=== PATIENT | female | born 1995 | race Caucasian/White ===

== ENCOUNTER → 2020-09-07 18:07 | Outpatient (BNVA) | payer MEDICAID, SELFPAY | PROVIDERS: Family Provider Family Medicine; Visit Provider Nurse Practitioner | DX: Z20.828 Contact with and (suspected) exposure to other viral communicable diseases (principal) | CPT/HCPCS: 87635 ==

== ENCOUNTER 2021-02-19 15:30 | Outpatient (CLI) | payer BC, MEDICAID, SELFPAY ==
--- NOTE | 2021-02-19 16:08 | US_ITS ---
WS: [id number] ULTRASOUND EARLY TECHNIQUE: Transabdominal sonography of the pelvis was performed. Followed by transvaginal sonography to better evaluate the uterus and ovaries. CLINICAL INFORMATION: DATING US LMP: 12/15/2020 Beta hCG: Unknown. COMPARISON: None. FINDINGS: UTERUS AND GESTATIONAL SAC Intrauterine gestations: Single live intrauterine with pole. Yolk sac is present. Cervix is closed measuring 4 .2 CCM. [place]-rump rump length is 3.5 cm. Estimated gestational age: 10w3d Estimated delivery September 14, 2021. Yolk sac: 0.5 cm. [place] rump length (CRL): 3.5 cm. heart motion: 180 BPM. Subchorionic hemorrhage: Present OVARIES Right ovary: Normal. Left ovary: Normal. FREE FLUID None. US/US OB <= 14 weeks fetus [id number] IMPRESSION: 1. Single live intrauterine with pole. 2. Small amount of subchorionic hemorrhage measuring 1.2 cc. Recommend short i nterval follow-up. 3. Estimated gestational age; 10 weeks 3 days. Estimated delivery September 14, 2021. 4. Cervix is closed measuring 4.2 CM. 5. No significant free fluid in the cul-de-sac.
== END 2021-02-19 15:31 | disposition home or self-care (01) ==
LOC: US 15:33
PROVIDERS: PCP Family Medicine; Visit Provider Family Medicine
DX: Z34.80 Encounter for supervision of other normal pregnancy, unspecified trimester (principal)
CPT/HCPCS: 76801

== ENCOUNTER 2021-05-01 14:48 | Outpatient (CLI) | payer BC, MEDICAID, SELFPAY ==
--- NOTE | 2021-05-01 15:00 | US_ITS ---
WS: [id number] ULTRASOUND OB COMPLETE TECHNIQUE: Complete ultrasound. CLINICAL INFORMATION: ANATOMY COMPARISON: February 19, 2021 FINDINGS: Cervix measures 4.1 cm Single interuterine gestation is identified with cephalic presentation. Placenta is posterior. Placenta grade 0. Normal amniotic fluid volume. cardiac activity: 157 BPM. AGA: 20w5d GREY by ultrasound: 09/13/2021 Estimated weight: 362 g., %. BDP: 4.9 cm = 20w5d HC: 18.8 cm = 21w1d AC: 15.2 cm = 20w3d FEMUR LENGTH: 3.4 cm = 20w4d Anatomic survey: profile not seen due to position. Anatomic survey is otherwise normal. Normal stomach. Kidneys and bladder are normal. Normal 3 vessel cord. Normal 3 vessel cord insertion. Normal 4 chamber heart. Normal spine. Intracranial contents are normal. Normal posterior fossa and cisterna magna. US/US OB >= 14 weeks fetus [id number] IMPRESSION: 1. Single intrauterine with visualized cardiac activity. AGA 20w5d w ith GREY 09/13/2021. 2. Placenta is anterior. No evidence of abruption or previa. 3. profile not seen due to position. 4. anatomic survey is normal. 5. Normal amniotic fluid volume.
== END 2021-05-01 14:49 | disposition home or self-care (01) ==
LOC: RAD 14:51
PROVIDERS: PCP Family Medicine; Visit Provider Family Medicine
DX: Z36.89 Encounter for other specified antenatal screening (principal); Z3A.20 20 weeks gestation of pregnancy
CPT/HCPCS: 76805

== ENCOUNTER 2021-07-17 09:38 | Outpatient (CLI) | payer BC, MEDICAID, SELFPAY ==
[2021-07-17 09:38] VITALS: BMI 28.5
[2021-07-17 09:54] VITALS: BP 121/62; PULSE 113
[2021-07-17 09:59] VITALS: RESP 18; TEMP 36.3
--- NOTE | 2021-07-17 10:08 | XR_ITS ---
WS: [id number] XR chest 1V portable [id number] REASON FOR EXAM: SHORTNESS OF BREATH FINDINGS: The heart and mediastinum are within normal limits. Calcified granulomatous disease in both hemithoraces. No active pulmonary parenchymal or pleural disease is identified. No significant abnormality of the bony thorax. XR/XR chest 1V portable [id number] IMPRESSION: No acute chest abnormality.
[2021-07-17 10:24] VITALS: BP 123/72; PULSE 114
[2021-07-17 10:54] VITALS: BP 113/72; PULSE 101
[2021-07-17 10:59] LABS: Basophils % 0.1 %; Eosinophils % 0.3 %; Hematocrit 34.1 % (37.0-47.0); Hemoglobin 11.6 g/dL (11.5-15.3); Lymphocytes # 0.9 10^3/uL (0.8-4.8); Lymphocytes % 11.3 %; Mean Corpuscular Hemoglobin 30.9 pg (28.0-34.0); Mean Corpuscular Volume 90.7 fl (81-99); Mean Platelet Volume 9.7 fL (7.4-10.4); Monocytes # 0.6 10^3/uL (0.2-0.9); Monocytes % 7.5 %; Neutrophils # 6.19 10^3/uL (1.8-7.7); Neutrophils % 79.1 %; Nucleated Red Blood Cells % 0 %; Platelet Count 165 10^3/cmm (130-400); Red Blood Count 3.76 10^6/uL (4.1-5.3); Red Cell Distribution Width 12.2 % (12.1-15.1); White Blood Count 7.8 10^3/uL (4.0-10.0)
[2021-07-17 11:02] LABS: Bilirubin Urine 1+ (Negative); Blood Urine Neg (Negative); Glucose Urine UA Norm (Normal); Ketones Urine Negative (Negative); Leukocyte Esterase Urine 2+ (Negative); Nitrate Urine Negative (Negative); Protein Urine Neg (Negative); Specific Gravity, Urine 1.005 (1.005-1.030); Urine Appearance SL Hazy (CLEAR); Urine Color Yellow (Yellow); Urobilinogen Urine 4 mg/dL (Negative); pH Urine 7 (5-7)
[2021-07-17 11:03] LABS: Add Urine Microscopic? YES
[2021-07-17 11:09] LABS: Amphetamines Screen Urine Positive (Negative); Barbiturates Screen Urine Negative (Negative); Benzodiazepines Screen Urine Negative (Negative); Cocaine Screen Urine Negative (Negative); Opiate Screen Urine Negative (Negative); PCP Screen Urine Negative (Negative); THC Screen Urine Negative (Negative)
[2021-07-17 11:15] LABS: D Dimer 1.37 ug/mIFEU (0-0.59)
[2021-07-17 11:15] LABS: Add Urine Culture? No; Bacteria Urine 1+ /hpf; Mucus Urine 1+ /hpf; RBC Urine RARE /hpf (0-2)
[2021-07-17 11:26] LABS: Alanine Aminotransferase 18 U/L (0-33); Albumin Level 3.3 g/dL (3.5-5.2); Alkaline Phosphatase 215 IU/L (35-105); Blood Urea Nitrogen 7 mg/dL (6-20); Calcium 8.2 mg/dL (8.5-10.5); Carbon Dioxide 19 mmol/L (22-29); Globulin 2.6 g/dL (1.3-4.6); Glomerular Filtration Rate 192.9 mL/min (90-130); Glucose 82 mg/dL (65-115); Total Bilirubin 0.4 mg/dL (0.15-1.2); Total Protein 5.9 g/dL (6.6-8.7); Uric Acid 3.5 mg/dL (2.4-5.7)
[2021-07-17 11:36] LABS: Aspartate Amino Transferase 24 U/L (0-32)
[2021-07-17 11:38] LABS: UPRO/UCREAT Ratio 0.09 mg/mg CR; Urine Creatinine 171 mg/dL (28-217); Urine Protein Random 16 mg/dL
[2021-07-17 11:44] LABS: Chloride 101 mmol/L (98-107); Osmolality Calculated 273 mOsm/kg (285-295); Sodium 133 mmol/L (136-145)
--- NOTE | 2021-07-17 11:50 | CT_ITS ---
WS: [id number] CT CHEST ANGIOGRAPHY WITH REFORMATS HISTORY: Tachycardia, dyspnea TECHNIQUE: Contiguous axial images are obtained through the chest during arterial injection of intrav enous contrast. Images are reconstructed to evaluate the pulmonary arteries. MIP imaging also reviewe d. All CT scans at [facility] use at least one of these dose optimization techniques: automat ed exposure control; mA and/or kV adjustment per patient size (includes targeted exams where dose is matched to clinical indication); or iterative reconstruction. CONTRAST: Visipaque 320; 65 mL IV. DLP: 525.65 mGy.cm COMPARISON: None available. Limited opacification of the pulmonary arteries. Timing of the bolus and imaging is suboptimal. Heter ogeneous enhancement of the pulmonary artery. No large emboli evident. Pulmonary artery size is rachid l. No RIGHT heart strain. Normal aorta. Lungs are clear. No adenopathy. Upper abdominal structures are normal. CT/CT angio chest PE protcl [id number] IMPRESSION: 1. Suboptimal opacification of the pulmonary arteries. No large filling defect s are evident. Small emboli cannot be excluded. 2. No RIGHT heart strain. 3. Normal size pulmonary artery. 4. No pneumonia.
[2021-07-17] MEDS: iodixanol 320 mg/mL 100mL Btl IV (12:31)
--- NOTE | 2021-07-17 12:31 | P.MISC_ITS ---
Miscellaneous Note Note: The patient presented secondary to tachycardia with dyspnea in the office yesterday. She was advised to present to labor and delivery triage immediately. She did not do so and did not present until this morning. The patient continues to have shortness of breath. Her tachycardia was in the 140s i n the office and is down in the 1 15-1 20 range now. She continues to have shortness of breath. We have done labs to look for an underlying cause. Her D- dimer is elevated. We will get a Covid swab to see if this is the underlying cause. If it is negative, we will plan for a CT angio to rule out a blood clot. I discussed this with the patient and she is in agreement with the plan of care. It is possible that the patient's shortness of breath is related to her drug use. A blood culture has been done. White blood cell count is not elevated sufficiently to make me think that she has sepsis secondary to this, but the blood culture will be followed. Further work-up will be done pending her results. All questions were answered.
[2021-07-17 12:49] VITALS: BP 90/50; PULSE 116
[2021-07-17 13:02] LABS: SARS Covid-2 Antigen Negative (Negative)
--- NOTE | 2021-07-17 13:26 | PC.NURSE ---
TALKED WITH PATIENT ABOUT POSITIVE DRUG SCREEN AND SHE DENIED TAKING ANYTHING. DID TELL HER THAT WE WOULD SCREEN HER AGAIN PRIOR TO BABY BEING BORN AND IF SHE IS POSITIVE WE WOULD HAVE TO REPORT HER TO DFS. VOICES UNDERSTANDING.
[2021-07-17 13:27] VITALS: BP 90/50; PULSE 116; RESP 18; TEMP 36.3
== END 2021-07-17 13:25 | disposition home or self-care (01) ==
LOC: OPOB 09:47 → OBGYN 09:49
PROVIDERS: Absent Provider Family Medicine; PCP Family Medicine; Visit Provider Family Medicine
DX: O99.419 Diseases of the circulatory system complicating pregnancy, unspecified trimester (principal); R00.0 Tachycardia, unspecified; O99.891 Other specified diseases and conditions complicating pregnancy; R06.02 Shortness of breath; Z20.822 Contact with and (suspected) exposure to COVID-19; O99.320 Drug use complicating pregnancy, unspecified trimester
CPT/HCPCS: 36415; 59025; 71045; 71275; 80053; 80306; 81001; 82570; 84156; 84550; 85025; 85378; 86141; 87040; 87426; 99211; Q9967

== ENCOUNTER 2021-08-11 02:14 | Outpatient (CLI) | payer BC, MEDICAID, SELFPAY ==
[2021-08-11] VITALS (30 sets, daily range): BP systolic 64–99; BP diastolic 34–62; PULSE 105–142; TEMP 36.8–36.9; O2SAT 94–100; BMI 29.2
[2021-08-11] MEDS: lactated ringers 1,000 ML 999 ML IV (03:11)
[2021-08-11 03:19] LABS: Amphetamines Screen Urine Positive (Negative); Barbiturates Screen Urine Negative (Negative); Benzodiazepines Screen Urine Negative (Negative); Bilirubin Urine Neg (Negative); Blood Urine Neg (Negative); Cocaine Screen Urine Negative (Negative); Glucose Urine UA Norm (Normal); Ketones Urine 2+ (Negative); Leukocyte Esterase Urine 1+ (Negative); Nitrate Urine Negative (Negative); Opiate Screen Urine Negative (Negative); PCP Screen Urine Negative (Negative); Protein Urine Neg (Negative); Specific Gravity, Urine 1.015 (1.005-1.030); THC Screen Urine Negative (Negative); Urine Appearance Clear (CLEAR); Urine Color Yellow (Yellow); Urobilinogen Urine Norm (Negative); pH Urine 6 (5-7)
[2021-08-11 03:21] LABS: WBC Urine 0-4 /hpf (0-5)
[2021-08-11 03:22] LABS: Add Urine Culture? No; Mucus Urine 1+ /hpf
== END 2021-08-11 04:30 | disposition home or self-care (01) ==
LOC: OPOB 02:23 → OBGYN 02:24
PROVIDERS: PCP Family Medicine; Visit Provider Family Medicine
DX: O99.891 Other specified diseases and conditions complicating pregnancy (principal)
CPT/HCPCS: 59025; 80306; 81001; 99211

== ENCOUNTER 2021-09-07 16:45 | Outpatient (CLI) | payer BC, MEDICAID, SELFPAY ==
[2021-09-07] VITALS (19 sets, daily range): BP systolic 110–126; BP diastolic 64–83; PULSE 79–112; O2SAT 97–100; BMI 31.6
== END 2021-09-07 19:30 | disposition home or self-care (01) ==
LOC: OPOB 16:54 → OBGYN 16:55 → OPOB 17:20
PROVIDERS: PCP Family Medicine; Visit Provider Family Medicine
DX: O26.899 Other specified pregnancy related conditions, unspecified trimester (principal); Z3A.00 Weeks of gestation of pregnancy not specified; R10.9 Unspecified abdominal pain
CPT/HCPCS: 59025; 99211

== ENCOUNTER 2021-09-07 23:39 | Inpatient (IN) | payer BC, MEDICAID, SELFPAY ==
[2021-09-07 23:18] VITALS: BP 134/88; PULSE 90
[2021-09-07 23:35] VITALS: BP 127/77; PULSE 90
[2021-09-07 23:44] VITALS: TEMP 36.4
[2021-09-07 23:49] LABS: Basophils % 0.3 %; Eosinophils # 0.1 10^3/uL (0.0-0.8); Eosinophils % 0.6 %; Hemoglobin 11.1 g/dL (11.5-15.3); Lymphocytes # 2.1 10^3/uL (0.8-4.8); Lymphocytes % 18.4 %; Mean Corpuscular HGB Conc 31.7 g/dL (30.0-36.0); Mean Corpuscular Hemoglobin 26.7 pg (28.0-34.0); Mean Corpuscular Volume 84.1 fl (81-99); Mean Platelet Volume 10.5 fL (7.4-10.4); Monocytes # 0.9 10^3/uL (0.2-0.9); Monocytes % 7.6 %; Neutrophils # 8.31 10^3/uL (1.8-7.7); Neutrophils % 72.3 %; Nucleated Red Blood Cells % 0 %; Platelet Count 177 10^3/cmm (130-400); Red Blood Count 4.16 10^6/uL (4.1-5.3); Red Cell Distribution Width 14.6 % (12.1-15.1); White Blood Count 11.5 10^3/uL (4.0-10.0)
[2021-09-07 23:50] VITALS: BP 114/69; PULSE 90
[2021-09-07 23:58] LABS: Amphetamines Screen Urine Negative (Negative); Barbiturates Screen Urine Negative (Negative); Benzodiazepines Screen Urine Negative (Negative); Cocaine Screen Urine Negative (Negative); Opiate Screen Urine Negative (Negative); PCP Screen Urine Negative (Negative); THC Screen Urine Negative (Negative)
[2021-09-08] VITALS (62 sets, daily range): BP systolic 70–138; BP diastolic 33–84; PULSE 59–176; RESP 16–18; TEMP 36–37.1; O2SAT 95–100; BMI 31.6
--- NOTE | 2021-09-08 00:10 | PM.HP ---
Providers/Chief Complaint Admitting Physician: Tanner Najera MD Primary Care Provider: Miquel Nguyen MD Chief Complaint: CONTRACTIONS History of Present Illness Radha Love is a 26 year old at 39.0 weeks gestation by 10-week ultrasound. Her is complicated by history of possible retained placenta, father baby with defect of hand, UTI during first trimester, history of chlamydia during other , history of precipitous delivery, smoker, methamphetamine positive urine drug screen on 02/10/2021, 04/09/2021, 07/17/2021 and 08/11/2021. Negative urine drug screen on 08/26/2021 and upon admission on 09/08/2021, COVID-19 infection at 35 weeks gestation. The patient presented to labor delivery triage with concerns for contractions on the evening of 09/08/2021 at approximately 5:30 PM. She was 1 cm dilated and was not making any cervical change after 1.5 hours. For this reason she was sent home. She began to have worsening contractions around 8:30 PM that were every 2 minutes. These became stronger, so she returned to labor and delivery for further evaluation. Upon arrival she was 4 cm dilated. For this reason she was kept for spontaneous labor. The patient denies any chest pains, fever, shortness of breath, nausea, vomiting, diarrhea, constipation, dysuria, leakage of fluid, vaginal bleeding. Medications/Allergies Home Medications Medication Instructions Recorded Confirmed Last Taken Type PNV comb no.58-iron bisgly-FA 1 cap PO DAILY 07/17/21 08/11/21 08/10/21 10:30 History [] Allergies Allergy/AdvReac Type Severity Reaction Status Date / Time No Known Allergies Allergy Verified 09/08/21 00:20 PFSH Acute PFSH: Medical History (Updated 09/08/21 @ 00:17 by Tanner Najera MD) No significant medical problems Positive urine drug screen Surgical History History of tonsillectomy and adenoidectomy Family History Family/Other Breast cancer paternal aunt Grandmother Breast cancer paternal Mother Ovarian cancer Social History (Updated 09/08/21 @ 00:18 by Tanner Najera MD) Smoking and tobacco status: current every day smoker cigarettes Packs smoked per day: 0.25 Years cigarettes smoked: 8 Alcohol intake: never Substance/Drug Use: current Substance/Drug use frequency: other Substance/Drug use type: Methamphetamine Other substance/drug use details: Working on quitting methamphetamines Vitals/I&O/Wt Last Vital Signs Temp 97.5 F L 09/07/21 23:44 Pulse 90 09/08/21 00:05 BP 116/84 09/08/21 00:05 Physical Exam Narrative: EXAM NARRATIVE: General: Alert and oriented x3, in pain from contractions Eyes: Pupils equal round and reactive to light and accommodation Mouth: Mucous membranes moist, pharynx non-erythematous Cardiac: Regular rate and rhythm without murmurs Lungs: Clear to auscultation bilaterally without wheezes, crackles or rhonchi Abdomen: Soft, non-tender, fundus consistent with gestational age Extremities: Trace edema in the bilateral lower extremities Data : 09/07/21 23:39 A&P Additional A&P Information The patient is currently having painful contractions that are every 2 to 3 minutes. She is in spontaneous labor. She will be admitted. heart tones are in the mid 120s with moderate variability and good accelerations with a category 1 tracing. Initial urine drug screen is negative. The patient had a negative urine drug screen in the clinic on 08/26/2021 as well. Her last positive urine drug screen was on 08/11/2021. She has been actively working on quitting methamphetamines. We will watch for signs of complications related to this. She is GBS negative. The patient is being bolused for a laboring epidural. All questions were answered. Continue with routine management otherwise. Attestations Medical Necessity Statement*: The patient will be here for greater than 2 midnights due to routine intrapartum and management of labor and delivery. Coding Level of Care Code Acute Shell Freezing Machine Operator for Thi Aguirre
--- NOTE | 2021-09-08 00:20 | ANES.PREANE2 ---
Pre-Anesthetic Assessment Pre-Anesthetic Assessment: Height/Weight: Height 1.7 m Weight 91.626 kg Temp Pulse Resp BP Pulse Ox 97.5 F L 91 18 112/56 99 09/07/21 23:44 09/08/21 00:43 09/08/21 00:33 09/08/21 00:43 09/08/21 00:43 Preop Diagnosis: IUP Was Beta Danilo taken within 24 hours: N/A Was Clonidine taken within 24 hours: N/A Social: Social History: No alcohol and No tobacco Exam: Pre-Anes Outpt Exam: alert and oriented x 3 Airway: Submandibular: WNL Cervical ROM: WNL MP: 1 Dentition: Full History/ROS: No significant complaints Anesthetic Plan: ASA status: 2 Anesthesia: Anesthesia Evaluation and Regional (specify below) (epidural) Risk of > 500 ml blood loss (7ml/kg in children): No Meds/Allergies Current Medications: Current Medications Generic Name Dose Route Start Last Admin Trade Name Freq PRN Reason Stop Dose Admin Lactated Ringer's 1,000 mls @ 999 m ls/hr 09/07/21 23:26 09/08/21 00:25 Lactated Ringers IV 999 mls/hr .Q1H1M PRN Administration BLEEDING Ropivacaine 200 mg in 100 mls @ 13 mls/hr 09/07/21 23:45 09/08/21 00:31 Naropin Premix EPIDURAL 13 mls/hr .Q7H42M HESHAM Administration Lactated Ringer's 1,000 mls @ 999 m ls/hr 09/07/21 23:40 09/08/21 00:22 Lactated Ringers IV Infused .Q1H1M PRN Infusion See label comment s PFSH Anesthesia PFSH: Medical History (Updated 09/08/21 @ 00:17 by Tanner Najera MD) No significant medical problems Positive urine drug screen Surgical History History of tonsillectomy and adenoidectomy Family History Family/Other Breast cancer paternal aunt Grandmother Breast cancer paternal Mother Ovarian cancer Social History (Updated 09/08/21 @ 00:18 by Tanner Najera MD) Smoking and tobacco status: current every day smoker cigarettes Packs smoked per day: 0.25 Years cigarettes smoked: 8 Alcohol intake: never Substance/Drug Use: current Substance/Drug use frequency: other Substance/Drug use type: Methamphetamine Other substance/drug use details: Working on quitting methamphetamines Female Reproductive History: : 3 Data Anesthesia CBC & Chem 7: 09/07/21 23:39 Other Labs: Laboratory Results - last 48 hr 09/07/21 09/07/21 22:41 23:39 WBC 11.5 H RBC 4.16 Hgb 11.1 L Hct 35.0 L MCV 84.1 MCH 26.7 L MCHC 31.7 RDW 14.6 Plt Count 177 MPV 10.5 H Neut % (Auto) 72.3 Lymph % (Auto) 18.4 [place] % (Auto) 7.6 Eos % (Auto) 0.6 Baso % (Auto) 0.3 Neut # (Auto) 8.31 H Lymph # (Auto) 2.1 [place] # (Auto) 0.9 Eos # (Auto) 0.1 Baso # (Auto) 0.0 Nucleated RBC % (auto) 0 Nucleated RBCs # 0.0 Urine Opiates Screen Negative Ur Barbiturates Screen Negative Ur Phencyclidine Scrn Negative Ur Amphetamines Screen Negative U Benzodiazepines Scrn Negative Urine Cocaine Screen Negative U Marijuana (THC) Screen Negative Cardiac Studies: No Data to Display
[2021-09-08] MEDS: lactated ringers 1,000 ML 999 ML IV ×2 (00:25)
--- NOTE | 2021-09-08 00:44 | ANES.PROC ---
Anesthesia Procedures Procedure/Date: 09/08/21 epidural Epidural: Time Out Performed: Yes Consents Signed: Procedure Consent Consent: from patient, risks and benefits reviewed and patient agrees to proceed Lumbar Level: L3-L4 Epidural position: sitting Epidural procedure: sterile prep of area, 1% lidocaine to numb the area, 18 g needle, neg for paresthesia, test dose given, 1.5% xylocaine 1:200k epi, placed PCEA, no systemic response, sterile dressing applied, L.U.D. no apparent complications and 0.2% Ropiavacaine @ mls/hr (13) Additional Comments: EDGAR at 6 taped at 12 at skin
[2021-09-08] MEDS: ondansetron 2 mg/ML SDV 2 mL 4 MG IVP (01:25)
[2021-09-08] MEDS: dextrose 5%-lactated ringers 1,000 ML 125 ML IV (01:41)
[2021-09-08] MEDS: oxytocin 30 UNIT/500 ML BAG 600 UNIT IV (04:42)
--- NOTE | 2021-09-08 05:03 | PM.DELIVERY ---
Delivery Note: Date of delivery: September 08, 2021 Pre-delivery diagnoses: 1. Intrauterine at 39.1 weeks gestation 2. UTI during first trimester 3. History of precipitous delivery 4. Smoker 5. Methamphetamine positive urine drug screens during first, second and third trimester with current negative urine drug screen 6. COVID-19 infection at 35 weeks gestation Post-delivery diagnoses: 1. Intrauterine status post spontaneous vaginal delivery at 39.1 weeks gestation 2. UTI during first trimester 3. History of precipitous delivery 4. Smoker 5. Methamphetamine positive urine drug screens during first, second and third trimester with current negative urine drug screen 6. COVID-19 infection at 35 weeks gestation 7. Delivery of healthy male weighing 8 pounds 15 ounces with Apgars of 8 and 9 Procedure: Spontaneous vaginal delivery Op report anesthesia: Epidural Estimated blood loss (mL): 100 Findings: 1. Intact placenta with central umbilical cord insertion site 2. Delivery of healthy male weighing 8 pounds 15 ounces with Apgars of 8 9 3. Periurethral abrasion and right vaginal wall abrasion. Pre-Delivery Course: The patient presented to labor and delivery triage secondary to contractions that started on the morning of 09/07/2021. She initially was 1 cm and made no change after 1.5 hours. For this reason she was discharged home. She returned a few hours later and was 4 cm dilated. For this reason she was kept for spontaneous labor. heart tone tracings were category 1. The patient made steady change and SROM took place at 3:01 AM on 09/08/2021. The patient had a forebag of fluid and this was ruptured at 4:08 AM on 09/08/2021. The patient was complete shortly after at 4:18 AM. Delivery: The patient began pushing at 4:18 AM on 09/08/2021. The patient pushed well and the baby descended after steady pushing. The infant was born in the OA position at 4:37 AM on 09/08/2021. The right shoulder was the anterior shoulder and it delivered with ease. The rest of the infant delivered without complication. The 's mouth and nose were bulb suctioned by myself. The was crying immediately upon delivery. The infant was placed on the mother's chest where the nurses were waiting to care for him. The cord was clamped and cut by myself after approximately 1 minute. Cord blood was obtained. The cord was then drained of blood and traction was placed on the umbilical cord. The placenta delivered without complication at 4:42 AM on 09/08/2021. The placenta was noted to be intact with a central umbilical cord insertion site. The cervix was inspected and no lacerations were noted. Fundal massage was carried out and the uterus was noted to be firm and midline. The patient had only mild bleeding. EBL was 100 mL. The vaginal wall was inspected and a few abrasions were noted on the right labia and vaginal wall. No sutures were needed. Currently the and mother are doing very well. History History History 3 Term 3 Miscarriages/Ectopic 0 0 Living Children 3 A&P Assessment and plan (1) Intrauterine : Status: Acute (2) Spontaneous vaginal delivery: Status: Acute Coding Level of Care Code Acute Policy Service Coordinator for Chg Fwd Diagnoses Intrauterine Z34.90 Spontaneous vaginal delivery O80
--- NOTE | 2021-09-08 08:07 | ANE.PACU2 ---
Inpatient post-anesthesia follow up: Airway intact: Yes Vital signs: Temperature 96.8 F Pulse Rate 64 Respiratory Rate 16 Blood Pressure 122/63 Pulse Oximetry 99 Oxygen Delivery Me thod Room Air Oxygen Flow Rate Fraction of Inspir ed Oxygen Hydration adequate: Yes Nausea and vomiting: No Pain level: 1 Mental status: Baseline Additional Comments: EMR review
[2021-09-08] MEDS: prenatal vitamin Capsule 1 CAP PO (08:15)
[2021-09-08] MEDS: docusate sodium 100 mg Capsule PO ×2 (08:15→17:39)
[2021-09-08] MEDS: ibuprofen 800 mg tablet PO ×3 (08:15→22:08)
[2021-09-08 20:17] LABS: Hemoglobin 9.8 g/dL (11.5-15.3); Mean Corpuscular HGB Conc 31.6 g/dL (30.0-36.0); Mean Corpuscular Hemoglobin 27.3 pg (28.0-34.0); Mean Corpuscular Volume 86.4 fl (81-99); Mean Platelet Volume 10.5 fL (7.4-10.4); Platelet Count 157 10^3/cmm (130-400); Red Blood Count 3.59 10^6/uL (4.1-5.3); Red Cell Distribution Width 14.6 % (12.1-15.1); White Blood Count 10.1 10^3/uL (4.0-10.0)
[2021-09-09] MEDS: acetaminophen 325 mg Tablet 650 MG PO (00:22)
[2021-09-09 04:18] VITALS: BP 111/64; PULSE 70; RESP 16
--- NOTE | 2021-09-09 08:31 | PM.DCS ---
Discharge Providers Date of Admission: 09/07/21 23:39 Date of Discharge: September 09, 2021 Attending Provider at Admission: Tanner Najera MD Attending Provider at Discharge: Tanner Najera MD Primary Care Provider: Miquel Nguyen MD Diagnoses at Discharge Discharge Diagnosis (1) Intrauterine : Status: Resolved (2) Spontaneous vaginal delivery: Status: Resolved Other Information Additional DC diagnoses/information: 1. Intrauterine status post spontaneous vaginal delivery at 39.1 weeks gestation 2. UTI during first trimester 3. History of precipitous delivery 4. Smoker 5. Methamphetamine positive urine drug screens during first, second and third trimester with current negative urine drug screen 6. COVID-19 infection at 35 weeks gestation 7. Delivery of healthy male weighing 8 pounds 15 ounces with Apgars of 8 and 9 Reason for Visit Reason for Visit: CONTRACTIONS Hospital Course Hospital Course Predelivery course: The patient presented to labor and delivery triage secondary to contractions that started on the morning of 09/07/2021. She initially was 1 cm and made no change after 1.5 hours. For this reason she was discharged home. She returned a few hours later and was 4 cm dilated. For this reason she was kept for spontaneous labor. heart tone tracings were category 1. The patient made steady change and SROM took place at 3:01 AM on 09/08/2021. The patient had a forebag of fluid and this was ruptured at 4:08 AM on 09/08/2021. The patient was complete shortly after at 4:18 AM. Delivery: The patient began pushing at 4:18 AM on 09/08/2021. The patient pushed well and the baby descended after steady pushing. The was born in the OA position at 4:37 AM on 09/08/2021. The right shoulder was the anterior shoulder and it delivered with ease. The rest of the infant delivered without complication. The 's mouth and nose were bulb suctioned by myself. The was crying immediately upon delivery. The was placed on the mother's chest where the nurses were waiting to care for him. The cord was clamped and cut by myself after approximately 1 minute. Cord blood was obtained. The cord was then drained of blood and traction was placed on the umbilical cord. The placenta delivered without complication at 4:42 AM on 09/08/2021. The placenta was noted to be intact with a central umbilical cord insertion site. The cervix was inspected and no lacerations were noted. Fundal massage was carried out and the uterus was noted to be firm and midline. The patient had only mild bleeding. EBL was 100 mL. The vaginal wall was inspected and a few abrasions were noted on the right labia and vaginal wall. No sutures were needed. course: The patient has done very well without signs of complications. Her pain is currently well controlled. Her bleeding is decreasing well. She is ambulating, voiding, passing gas and tolerating food by mouth. Routine discharge instructions were discussed. All questions were answered. The patient is in agreement with the current plan of care. Physical Exam Narrative: EXAM NARRATIVE: General: Alert and oriented x3, in pain from contractions Cardiac: Regular rate and rhythm without murmurs Lungs: Clear to auscultation bilaterally without wheezes, crackles or rhonchi Abdomen: Soft, non-tender, fundus is firm and 2 cm below the umbilicus Extremities: Trace edema in the bilateral lower extremities Urinary Catheter Management^: Chaney Latex: Cath Placed During This Visit: yes, but has since been removed by the nurse Reason for Continuing Indwelling Catheter: Decision to DC Catheter Urinary Catheter Date of Insertion: 09/08/21 Urinary Catheter Time of Insertion: 01:09 Date Urinary Catheter Removed: 09/08/21 Time Urinary Catheter Discontinued: 04:12 Discharge Data Data Completed and Pending: Labs from last 24 hours 09/08/21 19:55 WBC 10.1 H RBC 3.59 L Hgb 9.8 L Hct 31.0 L MCV 86.4 MCH 27.3 L MCHC 31.6 RDW 14.6 Plt Count 157 MPV 10.5 H Vitals: Last Vital Signs Temp 98.2 F 09/08/21 22:00 Pulse 70 09/09/21 04:18 Resp 16 09/09/21 04:18 BP 111/64 09/09/21 04:18 Pulse Ox 97 09/08/21 22:00 Discharge Plan Discharge Patient Disposition: Home Condition: Good Prescriptions: New ibuprofen 800 mg Tablet 800 mg PO TID Qty: 60 RF: 0 ferrous sulfate 325 mg (65 mg iron) Tablet,Delayed Release (Dr/Ec) 325 mg PO BIDWM Qty: 30 RF: 0 Continued PNV comb no.58-iron bisgly-FA 10-400 mg-mcg Capsule 1 cap PO DAILY RF: 0 Discharge Orders: Discharge Order (Routine); Ordered 09/09/21 Ordered By: Tanner Najera Referrals: Tanner Najera MD [Physician] - 10/21/21 9:00 am Discharge Diet: Regular Discharge Activity: Resume usual activity Patient Instructions: and Nipple Soreness (GEN), and Breast Engorgement (GEN), Breast Care for the Mother (GEN), OB Discharge Report, OB Food/Drug Interaction Guide, Opioid Safety, OB Home Care, OB [facility], OB Vaginal Deliveries Activity Restrictions/Additional Instructions: Nothing per vagina for 6 weeks. Discharge Attestations Time Spent in Discharge Care*: greater than 30 min Quality Metrics Clinical Quality Measures During this hospital stay, did patient experience: None Coding Level of Care Code Acute Chg FW DC note Diagnoses Intrauterine Z34.90 Spontaneous vaginal delivery O80
[2021-09-09] MEDS: prenatal vitamin Capsule 1 CAP PO (10:27)
[2021-09-09] MEDS: docusate sodium 100 mg Capsule PO (10:27)
[2021-09-09] MEDS: ibuprofen 800 mg tablet PO (10:27)
[2021-09-09 10:42] VITALS: BP 131/86; PULSE 77; RESP 16; TEMP 36.5
== END 2021-09-09 12:25 | disposition home or self-care (01) | DRG 807 ==
LOC: OPOB 23:40 → OBGYN 23:40
PROVIDERS: Admitting Provider Family Medicine; PCP Family Medicine; Visit Provider Family Medicine
DX: O99.324 Drug use complicating childbirth (principal); Z37.0 Single live birth; F15.90 Other stimulant use, unspecified, uncomplicated; O99.334 Smoking (tobacco) complicating childbirth; F17.210 Nicotine dependence, cigarettes, uncomplicated; Z3A.39 39 weeks gestation of pregnancy; Z86.16 Personal history of COVID-19; Z87.59 Personal history of other complications of pregnancy, childbirth and the puerperium
CPT/HCPCS: 36415; 51702; 59025; 59409; 80306; 85025; 85027; 96374; 99211; J2405; J2795

== ENCOUNTER → 2022-01-25 08:53 | Outpatient (BNVA) | payer BC, MEDICAID, SELFPAY | PROVIDERS: PCP Family Medicine; Visit Provider Family Medicine | DX: N39.0 Urinary tract infection, site not specified (principal) | CPT/HCPCS: 81000 ==